=== PATIENT | male | born 1970 | race Caucasian/White ===

== ENCOUNTER 2017-11-22 10:37 | Outpatient (RCR) | payer OTHER | END 2017-12-10 10:51 | disposition home or self-care (01) | LOC: WSOH 10:37 | DX: S52.502A Unspecified fracture of the lower end of left radius, initial encounter for closed fracture (principal); W11.XXXA Fall on and from ladder, initial encounter; Y99.0 Civilian activity done for income or pay; Z88.0 Allergy status to penicillin | CPT/HCPCS: 24091; A6549 ==